=== PATIENT | female | born 1970 | race Caucasian/White ===

== ENCOUNTER 2022-11-18 08:40 | Inpatient (IN) | payer BC, SELFPAY ==
[2022-11-18] VITALS (9 sets, daily range): BP systolic 114–149; BP diastolic 73–86; PULSE 78–109; RESP 16–28; TEMP 36.6–37.6; O2SAT 93–100; BMI 23.4
--- NOTE | 2022-11-18 09:32 | CT_ITS ---
WS: [id number] CT ABDOMEN AND PELVIS NONCONTRAST HISTORY: flank pain, RIGHT. TECHNIQUE: Imaging performed through the abdomen and pelvis. Coronal and sagittal reformats are submi tted. All CT scans at [facility] use at least one of these dose optimization techniques: auto mated exposure control; mA and/or kV adjustment per patient size (includes targeted exams where dose is matched to clinical indication); or iterative reconstruction. DLP: 413.46 mGy.cm COMPARISON: None available. Lower thorax: Lung bases are clear. Visualized heart is normal. No hiatal hernia. Liver: Normal size liver. No mass or bile duct dilatation. Gallbladder: Normal gallbladder. No pericholecystic fluid or cholelithiasis. No gallbladder wall thic kening. Pancreas: Normal size and attenuation. Normal pancreatic duct. No pancreatitis or mass. Spleen: Normal. Adrenal glands: Normal. No mass. Right kidney: RIGHT kidney is enlarged and edematous with mild perinephric stranding. Loss of the nor mal corticomedullary differentiation by noncontrast CT. There is a nonobstructing 4 mm calcification mid pelvis. Moderate hydroureteronephrosis. RIGHT ureter is dilated and tortuous throughout its lengt h. Maximum diameter of the ureter is 10 mm near the pelvic brim. Ureter becomes more normal size dist ally. There is a very tiny, 2 mm, calcification in the distal ureter. The extent of the dilatation is out of proportion to the size of the stone. There is in the additional calcification in the true pel vis which is external to the urological system. Left kidney: Normal size kidney with no mass or hydronephrosis. Aorta: Moderate to severe atherosclerosis abdominal aorta. No aneurysm. Atherosclerosis continues int o the common iliac arteries. No free fluid, intraperitoneal air or significant lymphadenopathy. GI tract: Normal noncontrast imaging of the stomach, small bowel and colon. No obstruction or wall th ickening. Normal appendix. Abdominal wall: Negative. No hernia. Pelvis: Urinary bladder is not distended. Osseous structures: Interbody fusion at L4-5. CT/CT kidney stone [id number] IMPRESSION: 1. Moderate RIGHT hydroureteronephrosis. There is a 2 mm calcification in the very distal ureter. The extent of the hydronephrosis is out of proportion to th e size of the ureter calcification. There is an additional nonobstructing stone in the RIGHT kidney. 2. Mild perinephric stranding RIGHT kidney. There is mild variable density wit hin the renal parenchyma. Focal area of nephritis not excluded. 3. Moderate atherosclerosis aorta. 4. Normal appendix.
--- NOTE | 2022-11-18 09:32 | ED_ITS ---
HPI - Female Genitourinary General: Chief complaint: Urogenital-Female Stated complaint: urogenital Time Seen by Provider: 11/18/22 08:55 Source: patient Mode of arrival: ambulatory History of Present Illness: 52-year-old female who presents to the emergency room with complaints of right flank pain radiating down into her right lower quadrant. Began overnight. Pain is severe she is moving around the room trying to find a comfortable position and she has been very nauseated with some vomiting. She had some dysuria as well. No hematochezia or melena. She has a history of renal stones last stone was 2 to 3 years ago. She has not noticed any hematuria. MD elicited complaint: dysuria and flank pain Onset (ago): hour(s) Location of symptoms: flank (Right) Severity: severe Female Urogenital Radiation: LRQ Quality of pain: sharp Consistency: constant Vaginal discharge: none Vaginal bleeding: none Urinary symptoms: Flank Pain Exacerbating factors: none Relieving factors: none Associated symptoms: Deny abdominal pain, short of breath, fevers/chills, headac he(s), nausea, rash, seizures, syncope, vaginal discharge or weakness Treatment prior to arrival: none Review of Systems Const: Denies: fever(s), chills, fatigue or malaise ENMT: Denies: throat pain, ear or mastoid pain, nasal discharge or nasal congestion Card: Denies: chest pain, palpitations or syncope Resp: Denies: dyspnea, productive cough or non-productive cough GI: Denies: abdominal pain or nausea : Reports: flank pain, dysuria and urinary frequency; Denies: vaginal discharge Musc: Reports: back pain; Denies: neck pain Skin/Breast: Denies: rash or pruritus Neuro: Denies: headache(s) PFS ED PFSH: Medical History 2 para 2 Kidney stones type unknown Migraine Surgical History History of x 2 History of lumbar fusion (2017) L4-L5 Family History Mother Kidney stones Migraine Sister Kidney stones Social History (Reviewed 06/13/23 @ 06:08 by AYDEE Cedeño Smoking and tobacco status: never smoked Alcohol intake: current Alcohol intake frequency: holidays/special occasions only Substance/Drug Use: never Physical Exam Const: GENERAL APPEARANCE: cooperative and comfortable ORIENTATION/CONSCIOUSNESS: Yes awake, Yes oriented to person, Yes oriented to place and Yes oriented to time HENMT: COMMON NORMALS: normocephalic, atraumatic and hearing grossly normal bilaterally HEAD & SCALP: normocephalic and atraumatic Resp: COMMON NORMALS: normal respiratory effort, No retractions, No use of accessory muscles and clear to auscultation bilaterally AUSCULTATION: clear to auscultation bilaterally Cardio: COMMON NORMALS: regular rate, regular rhythm and No murmurs present (Cardio) RATE: regular rate RHYTHM: regular rhythm GI: COMMON NORMALS: Soft to palpation and No hepatosplenomegaly present AUSCULTATION: Yes normoactive bowel sounds PALPATION: Yes Soft to palpation, No Tenderness to palpation present (GI), No Guarding due to palpation present (GI) and Yes No hepatosplenomegaly present : BLADDER/KIDNEY EXAM: Yes CVA tenderness Back/Pelvis: GENERAL BACK: Yes CVA tenderness CVA tenderness: right Extremity: COMMON NORMALS: normal to inspection, capillary refill normal, no clubbing, cyanosis or edema, no calf tenderness and no pedal edema Neuro: SENSORIUM/ORIENTATION: Yes oriented to person, Yes oriented to place and Yes oriented to time Skin: COMMON NORMALS: no rashes or lesions noted GENERAL SKIN EXAM: no rashes or lesions noted Course Vital Signs: Vital signs: Vital Signs Temperature 100.0 F H 11/19/22 04:00 Pulse Rate 114 H 11/19/22 04:00 Respiratory Rate 16 11/19/22 04:00 Blood Pressure 128/79 11/19/22 04:00 Pulse Oximetry 90 11/19/22 04:00 Oxygen Delivery Me thod Room Air 11/19/22 04:00 MDM - Female Medical Decision Making CT shows 2 mm stone. 40-50 white blood cells per high-power field pain very difficult to control. Patient has obstructive pyelonephritis will start on ceftriaxone admit consult urology have discussed Dr. Tate we will see as an inpatient. Concerning that the patient has a relatively small stone but severe difficult to control symptoms. Cultures of been done. Medical Records I reviewed the patient's medical records. Lab Data I reviewed the patient's lab results. 11/18/22 09:29 11/18/22 09:29 Radiology Impressions Abdomen/Pelvis CT 11/18/22 09:32 IMPRESSION: 1. Moderate RIGHT hydroureteronephrosis. There is a 2 mm calcification in the very distal ureter. The extent of the hydronephrosis is out of proportion to the size of the ureter calcification. There is an additional nonobstructing stone in the RIGHT kidney. 2. Mild perinephric stranding RIGHT kidney. There is mild variable density within the renal parenchyma. Focal area of nephritis not excluded. 3. Moderate atherosclerosis aorta. 4. Normal appendix. Laboratory Results WBC 10.3 10^3/uL (4.0-10.0) H 11/18/22 09: RBC 4.88 10^6/uL (4.1-5.3) 11/18/22 09: Hgb 14.9 g/dL (11.5-15.3) 11/18/22 09: Hct 45.2 % (37.0-47.0) 11/18/22 09: MCV 92.6 fl (81-99) 11/18/22 09: MCH 30.5 pg (28.0-34.0) 11/18/22 09: MCHC 33.0 g/dL (30.0-36.0) 11/18/22 09: RDW 12.6 % (12.1-15.1) 11/18/22 09: Plt Count 199 10^3/cmm (130-400) 11/18/22: MPV 10.1 fL (7.4-10.4) 11/18/22 09: Neut % (Auto) 75.6 % 11/18/22 09: Lymph % (Auto) 16.9 % 11/18/22 09: [place] % (Auto) 5.6 % 11/18/22 09: Eos % (Auto) 0.7 % 11/18/22 09:29 Baso % (Auto) 0.7 % 11/18/22 09:29 Neut # (Auto) 7.82 10^3/uL (1.8-7.7) H 11/18/22 09: Lymph # (Auto) 1.8 10^3/uL (0.8-4.8) 11/18/22 09: [place] # (Auto) 0.6 10^3/uL (0.2-0.9) 11/18/22 09: Eos # (Auto) 0.1 10^3/uL (0.0-0.8) 11/18/22 09: Baso # (Auto) 0.1 10^3/uL (0.0-0.1) 11/18/22 09: Nucleated RBC % (auto) 0 % 11/18/22: Nucleated RBCs # 0.0 /100WBC 11/18/22: Sodium 137 mmol/L (136-145) 11/18/22: Potassium 4.1 mmol/L (3.5-5.1) 11/18/22: Chloride 100 mmol/L (98-107) 11/18/22: Carbon Dioxide 25 mmol/L (22-29) 11/18/22: Anion Gap 16.1 (5-19) 11/18/22: BUN 22 mg/dL (6-20) H 11/18/22: Creatinine 0.8 mg/dL (0.5-0.9) 11/18/22: GFR Calculation 75.6 mL/min (90-130) L 11/18/22: Glucose 114 mg/dL (65-115) 11/18/22 Calculated Osmolality 288 mOsm/kg (285-295) 11/18/22: Lactic Acid 1.6 mmol/L (0.5-2.2) 11/18/22: Calcium 9.3 mg/dL (8.5-10.5) 11/18/22: Urine Color Yellow (Yellow) 11/18/22: Urine Appearance Sl hazy (CLEAR) A 11/18/22: Urine pH 6 (5-7) 11/18/22: Ur Specific [place] 1.020 (1.005-1.030) 11/18/22: Urine Protein Trace (Negative) 11/18/22 Urine Glucose (UA) Norm (Normal) 06/12/23 09:29 Urine Ketones Negative (Negative) 11/18/22 09:29 Urine Blood 3+ (Negative) H 11/18/22 09:29 Urine Nitrate Negative (Negative) 11/18/22 09:29 Urine Bilirubin Neg (Negative) 11/18/22 09:29 Urine Urobilinogen Norm mg/dL (Negative) 11/18/22 09:29 Ur Leukocyte Esterase Trace (Negative) H 11/18/22 09:29 Urine RBC 0-4 /hpf (0-2) H 11/18/22 09:29 Urine WBC 40-55 /hpf (0-5) H 11/18/22 09:29 Ur Squamous Epith Cells 0-4 /hpf (0-5) H 11/18/22 09:29 Amorphous Sediment Not Reportable 11/18/22 09:29 Urine Bacteria Trace /hpf (NONE) 11/18/22 09:29 Urine Mucus Trace /hpf 11/18/22 09:29 Discharge Plan Discharge Patient Disposition: Admitted As Inpatient Admit Provider: Susan Koch Clinical Impression: Pyelonephritis, Kidney stones Condition: Stable Coding Level of Care Code ED [employer]able [employer] for [facility]
[2022-11-18 09:41] LABS: Basophils # 0.1 10^3/uL (0.0-0.1); Basophils % 0.7 %; Eosinophils # 0.1 10^3/uL (0.0-0.8); Eosinophils % 0.7 %; Hematocrit 45.2 % (37.0-47.0); Hemoglobin 14.9 g/dL (11.5-15.3); Lymphocytes # 1.8 10^3/uL (0.8-4.8); Lymphocytes % 16.9 %; Mean Corpuscular Hemoglobin 30.5 pg (28.0-34.0); Mean Corpuscular Volume 92.6 fl (81-99); Mean Platelet Volume 10.1 fL (7.4-10.4); Monocytes # 0.6 10^3/uL (0.2-0.9); Monocytes % 5.6 %; Neutrophils # 7.82 10^3/uL (1.8-7.7); Neutrophils % 75.6 %; Nucleated Red Blood Cells % 0 %; Platelet Count 199 10^3/cmm (130-400); Red Blood Count 4.88 10^6/uL (4.1-5.3); Red Cell Distribution Width 12.6 % (12.1-15.1); White Blood Count 10.3 10^3/uL (4.0-10.0)
[2022-11-18] MEDS: ondansetron 2 mg/ML SDV 2 mL 4 MG IVP (10:00)
[2022-11-18] MEDS: morphine 4 mg/mL SDV 1 mL IVP ×2 (10:00→10:50)
[2022-11-18] MEDS: sodium chloride 0.9% 1,000 ML 999 ML IV (10:01)
[2022-11-18 10:15] LABS: Add Urine Microscopic? YES; Bilirubin Urine Neg (Negative); Blood Urine 3+ (Negative); Glucose Urine UA Norm (Normal); Ketones Urine Negative (Negative); Leukocyte Esterase Urine Trace (Negative); Nitrate Urine Negative (Negative); Protein Urine Trace (Negative); Urine Appearance SL Hazy (CLEAR); Urine Color Yellow (Yellow); Urobilinogen Urine Norm (Negative); pH Urine 6 (5-7)
[2022-11-18 10:16] LABS: Add Urine Culture? Yes; Bacteria Urine TRACE /hpf; Mucus Urine TRACE /hpf; RBC Urine 0-4 /hpf (0-2); Squamous Epithelial Cell Urine 0-4 /hpf (0-5); WBC Urine 40-55 /hpf (0-5)
[2022-11-18] MEDS: cefTRIAXone 1,000 MG in sodium chloride 0.9% (plus) 50 ML 100 MG IV (10:50)
[2022-11-18] MEDS: HYDROmorphone 1 mg/mL INJ 1 mL IVP (11:29)
[2022-11-18] MEDS: HYDROmorphone 1 mg/mL INJ 1 mL 0.5 MG IVP (11:55)
[2022-11-18 12:12] LABS: Anion Gap 16.1 (5-19); Blood Urea Nitrogen 22 mg/dL (6-20); Calcium 9.3 mg/dL (8.5-10.5); Carbon Dioxide 25 mmol/L (22-29); Chloride 100 mmol/L (98-107); Glomerular Filtration Rate 75.6 mL/min (90-130); Glucose 114 mg/dL (65-115); Lactic Sepsis W/Reflex 1.6 mmol/L (0.5-2.2); Osmolality Calculated 288 mOsm/kg (285-295); Potassium 4.1 mmol/L (3.5-5.1); Sodium 137 mmol/L (136-145)
--- NOTE | 2022-11-18 12:15 | P.HP_ITS ---
Providers/Chief Complaint Admitting Physician: Susan Koch MD Primary Care Provider: Dr Lance Bell at [place] [facility] Chief Complaint: urogenital History of Present Illness Kristina Osorio is a 52 year old female who presented to the ED with chief complaint of back pain and dysuria. Symptoms began this morning. Prior to today, denies any prodromal symptoms. She noticed right sided back pain that was initially mild upon awakening from sleep, thought she had maybe slept wrong. She proceeded to get ready for work and on the way into work her back pain became even more acutely severe up to an 11 out of 10 by her ranking. She has a history of kidney stones in the past and knew what her symptoms probably were. The pain radiated into the right lower quadrant suprapubic region in the front. After the onset of the pain she also noted dysuria. Has not noted any blood in her urine. She has had nausea and a couple of episodes of vomiting. She presented to the emergency room. White count is just outside of normal range with a little bit of a left shift. Urinalysis shows 40-55 white blood cells with trace leukocyte esterase. 3+ blood is noted with only 0-[address] imaging without contrast shows moderate right hydroureteronephrosis. A 2 mm calcification is noted in the very distal ureter. The extent of the hydronephrosis is out of proportion to the size of the ureter calcification. Additional nonobstructing stone is also noted in the right kidney. Mild perinephric stranding is seen within the right kidney. A focal area of nephri tis is not excluded. She received multiple doses of pain medication in the emergency room including a total of 12 mg of morphine and 1-1/2 mg of Dilaudid. She required several doses of antiemetics and has also received some IV fluids. She was started on Rocephin. Dr. Downey with urology was contacted. He will see her in consultation. She is being admitted to hospitalist service. While she has had previous kidney stones. She has previously passed them. Has never had a stone analyzed. Has never required invasive intervention because of kidney stones. Review of Systems Const: Reports: malaise; Denies: fever(s) Card: Denies: chest pain Resp: Denies: dyspnea GI: Reports: abdominal pain, nausea and vomiting; Denies: diarrhea or constipation : Reports: flank pain, difficulty voiding, dysuria and urinary frequency; Denies: hematuria Musc: Reports: back pain Neuro: Reports: headache(s) (Has migraines at least once a week); Denies: numbness in extremities [place]/Lymph: Denies: easy bruising or easy bleeding Medications/Allergies Home Medications Medication Instructions Recorded Confirmed Last Taken Type eeqilxripc-[id number]-[id number] 1 cap PO Q6H PRN Migraine Headache 11/18/22 11/18/22 Unknown History 50 mg-300 mg-40 mg capsule ondansetron 4 mg disintegrating 4 mg PO Q8H PRN Nausea And Vomiting 11/18/22 11/18/22 Unknown History tablet sumatriptan succinate 100 mg tablet 100 mg PO DIRECTED PRN Migraine 11/18/22 11/18/22 Unknown History Headache Allergies Allergy/AdvReac Type Severity Reaction Status Date / Time No Known Allergies Allergy Verified 11/18/22 10:31 PFSH Acute PFSH: Medical History (Updated 11/18/22 @ 13:01 by Susan Koch MD) 2 para 2 Kidney stones type unknown Migraine Surgical History (Updated 11/18/22 @ 12:30 by Susan Koch MD) History of x 2 History of lumbar fusion (2017) L4-L5 Family History (Updated 11/18/22 @ 12:31 by Ssuan Koch MD) Mother Kidney stones Migraine Sister Kidney stones Social History (Updated 11/18/22 @ 12:32 by Susan Koch MD) Smoking and tobacco status: never smoked Alcohol intake: current Alcohol intake frequency: holidays/special occasions only Substance/Drug Use: never Vitals/I&O/Wt Last Vital Signs Pulse 84 11/18/22 12:11 Resp 16 11/18/22 12:11 BP 129/82 11/18/22 12:11 Pulse Ox 94 11/18/22 12:11 O2 Del Method Room Air 11/18/22 08:55 11/17/22 11/18/22 11/18/22 22:59 06:59 14:59 Intake Total 1050 / 1050 Balance 1050 / 1050 Weight last 48 hrs Weight 54.431 kg Physical Exam Narrative: Patient is awake and alert, sitting up on the side of the bed, looks to be in obvious discomfort at times but able to provide history. Normocephalic. Extraocular movements are intact. Oropharynx with slightly dry mucous membranes. Lungs are clear to auscultation bilaterally. Cardiovascular exam reveals a regular rate and rhythm. Abdomen is soft, with right lower quadrant tenderness to palpation extending into the right suprapubic area. No rebound but some voluntary guarding. Positive bowel sounds. Mild flank tenderness on the right side. No other areas of back tenderness at the present time. No pitting edema. Speech clear, face symmetric, moves all extremities. Data 11/18/22 09:11/18/22: Other Labs: Radiology Impressions Abdomen/Pelvis CT 11/18/22 09:32 IMPRESSION: 1. Moderate RIGHT hydroureteronephrosis. There is a 2 mm calcification in the very distal ureter. The extent of the hydronephrosis is out of proportion to the size of the ureter calcification. There is an additional nonobstructing stone in the RIGHT kidney. 2. Mild perinephric stranding RIGHT kidney. There is mild variable density within the renal parenchyma. Focal area of nephritis not excluded. 3. Moderate atherosclerosis aorta. 4. Normal appendix. Laboratory Results WBC 10.3 10^3/uL (4.0-10.0) H 11/18/22: RBC 4.88 10^6/uL (4.1-5.3) 11/18/22: Hgb 14.9 g/dL (11.5-15.3) 11/18/22: Hct 45.2 % (37.0-47.0) 11/18/22: MCV 92.6 fl (81-99) 11/18/22: MCH 30.5 pg (28.0-34.0) 11/18/22: MCHC 33.0 g/dL (30.0-36.0) 11/18/22: RDW 12.6 % (12.1-15.1) 11/18/22 Plt Count 199 10^3/cmm (130-400) 11/18/22 MPV 10.1 fL (7.4-10.4) 11/18/22 Neut % (Auto) 75.6 % 11/18/22: Lymph % (Auto) 16.9 % 11/18/22 09: [place] % (Auto) 5.6 % 11/18/22 09: Eos % (Auto) 0.7 % 11/18/22 09: Baso % (Auto) 0.7 % 11/18/22 09: Neut # (Auto) 7.82 10^3/uL (1.8-7.7) H 11/18/22 09: Lymph # (Auto) 1.8 10^3/uL (0.8-4.8) 11/18/22 09: [place] # (Auto) 0.6 10^3/uL (0.2-0.9) 11/18/22 09: Eos # (Auto) 0.1 10^3/uL (0.0-0.8) 11/18/22 09: Baso # (Auto) 0.1 10^3/uL (0.0-0.1) 11/18/22 09: Nucleated RBC % (auto) 0 % 11/18/22 09: Nucleated RBCs # 0.0 /100WBC 11/18/22 09: Sodium 137 mmol/L (136-145) 11/18/22 09: Potassium 4.1 mmol/L (3.5-5.1) 11/18/22 09: Chloride 100 mmol/L (98-107) 11/18/22 09: Carbon Dioxide 25 mmol/L (22-29) 11/18/22 09: Anion Gap 16.1 (5-19) 11/18/22 09: BUN 22 mg/dL (6-20) H 11/18/22 09: Creatinine 0.8 mg/dL (0.5-0.9) 11/18/22 09: GFR Calculation 75.6 mL/min (90-130) L 11/18/22 09: Glucose 114 mg/dL (65-115) 11/18/22: Calculated Osmolality 288 mOsm/kg (285-295) 11/18/22 09: Lactic Acid 1.6 mmol/L (0.5-2.2) 11/18/22 09: Calcium 9.3 mg/dL (8.5-10.5) 11/18/22 09:29 Urine Color Yellow (Yellow) 11/18/22 09:29 Urine Appearance Sl hazy (CLEAR) A 11/18/22 09:29 Urine pH 6 (5-7) 11/18/22 09:29 Ur Specific [place] 1.020 (1.005-1.030) 11/18/22 09:29 Urine Protein Trace (Negative) 11/18/22 09:29 Urine Glucose (UA) Norm (Normal) 11/18/22 09: Urine Ketones Negative (Negative) 11/18/22 09: Urine Blood 3+ (Negative) H 11/18/22 09:29 Urine Nitrate Negative (Negative) 11/18/22 09: Urine Bilirubin Neg (Negative) 11/18/22 09: Urine Urobilinogen Norm mg/dL (Negative) 11/18/22 09: Ur Leukocyte Esterase Trace (Negative) H 11/18/22 09:29 Urine RBC 0-4 /hpf (0-2) H 11/18/22 09: Urine WBC 40-55 /hpf (0-5) H 11/18/22 09: Ur Squamous Epith Cells 0-4 /hpf (0-5) H 11/18/22 09: Amorphous Sediment Not Reportable 11/18/22 09: Urine Bacteria Trace /hpf (NONE) 11/18/22 09: Urine Mucus Trace /hpf 11/18/22 09:29 A&P Assessment and plan (1) Kidney stones: Acute distal ureter kidney stone, type unknown, present on admission with associated hydroureteronephrosis out of proportion to the size of stone along with findings of suspected pyelonephritis present on admission both from imaging findings and symptoms. IV fluids Continue Rocephin Urology consultation Strain urine for stones and send for analysis if capture any Follow-up pending urine culture (2) Pyelonephritis: Present on admission, organism unknown at this time See above (3) Hydroureteronephrosis: Present on admission, currently with normal renal function. Degree is out of proportion to size of stone visualized. Not known to have had hydroureteronephrosis previously from information she is able to provide. We have no prior studies for comparison. See above (4) Migraine: History of chronic migraine, not acute presently. Has as needed sumatriptan, butalbital-acetaminophen?caffeine, Zofran ODT which she takes probably once a week for migraines. Monitor need for treatment Plan Inpatient admission VTE prophylaxis: SCDs currently as may require invasive intervention GI Prophylaxis: PPI Telemetry: Not currently indicated [place]: Not currently indicated Line(s): Peripheral IV Disposition plan: Home with oral antibiotics anticipated, may require outpatient follow-up with urology (need to keep in mind that Dr. Downey is retiring at the end of this month) Code Status: Full code Attestations Medical Necessity Statement*: Inpatient admission secondary to findings of perinephric stranding and abnormal urinalysis suggesting acute pyelonephritis present on admission and degree of hydroureteronephrosis being out of proportion to size of kidney stone. Currently requiring frequent IV pain medication, IV antibiotics, IV fluids and urological consultation for possible intervention. and Moderate Time for a total of 60 minutes, includes examining/interviewing patient, placing orders and documenting encounter Diagnoses Kidney stones N20.0 Pyelonephritis N12 Hydroureteronephrosis N13.30 Migraine G43.909
[2022-11-18] MEDS: sodium chloride 0.9% 1,000 ML 100 ML IV (13:09)
[2022-11-18] MEDS: sodium chlor 0.9% + KCl 20 mEq 20 MEQ/1,000 ML BAG 150 MEQ IV ×2 (14:20→21:11)
--- NOTE | 2022-11-18 15:38 | PM.CONSULT ---
Providers/Reason For Consult Consulting Physician/Specialty*: Urology/[place] Reason for Consult*: RIGHT distal ureteral stone with obstruction and pain. UTI Requesting Physician: Dr. Koch Attending Physician: Susan Koch MD History of Present Illness History of Present Illness Kristina Osorio is a 52 year old female with a history of urolithiasis who presented with <12 hours of abrupt onset of severe right renal colicky symptoms to the emergency department today. No fever or chills. Pain radiated to the right lower quadrant. Complained of severe nausea and vomiting as well. Work-up: Was found to have on CT scan right hydroureteronephrosis down to the distal ureter with evidence of a very small stone in that most distal aspect. Urine showed pyuria. No evidence of sepsis. Culture is pending. Blood cell count: High normal. Pain was very difficult to control and she was admitted for symptomatic control and IV antibiotics and further evaluation of the obstruction. We reviewed the CT scan. She definitely has severe hydronephrosis on the right side. It comes down to the area close to the stone. This could represent a stricture or just a very high-grade acute obstruction but the dilation degree is significant. Her reminded her that she had some pain similar to this that was short-lived about 6 months ago. Could be that she has had a chronic obstruction since then with acute exacerbation for this episode. Recommended that we continue symptomatic control, IV antibiotics, and obtain a KUB early in the morning. I do not think there is much risk at this point of severe infectious concerns but the degree of dilation and the severity of her symptoms and the inability to have passed a very very small stone increases the chance that she might need intervention sooner than later. We discussed the options for that intervention specifically endoscopy. We will revisit that issue tomorrow morning. She has passed all of her previous stones and has had no requirement for intervention. Review of Systems Const: Denies: fever(s) or chills Eyes: Denies: change in vision ENMT: Denies: hoarseness Card: Denies: chest pain or palpitations Resp: Denies: dyspnea or wheezing GI: Reports: abdominal pain, nausea and vomiting; Denies: change in bowel habits : Reports: flank pain and dysuria (Transient) Musc: Denies: joint warmth Skin/Breast: Denies: rash Neuro: Denies: confusion, behavioral changes or Slurred speech present Psych: Reports: anxiety (Secondary to the severity of her pain only); Denies: depression Endo: Denies: flushing [place]/Lymph: Denies: easy bruising or easy bleeding All/Imm: Denies: urticaria Medications/Allergies Home Medications Medication Instructions Recorded Confirmed Last Taken Type iamngfnkxm-bicomvgqflrzi-ahifpuyh 1 cap PO Q6H PRN Migraine Headache 11/18/22 11/18/22 Unknown History 50 mg-300 mg-40 mg capsule ondansetron 4 mg disintegrating 4 mg PO Q8H PRN Nausea And Vomiting 11/18/22 11/18/22 Unknown History tablet sumatriptan succinate 100 mg tablet 100 mg PO DIRECTED PRN Migraine 11/18/22 11/18/22 Unknown History Headache Allergies Allergy/AdvReac Type Severity Reaction Status Date / Time No Known Allergies Allergy Verified 11/18/22 10:31 Current Medications Generic Name Dose Route Start Last Admin Trade Name Freq PRN Reason Stop Dose Admin Potassium Chloride/Sodium Chloride 20 meq in 1,000 mls @ 150 mls/hr 11/18/22 13:15 11/18/22 14:20 Sodium Chlor 0.9% + Kcl 20 Meq IV 150 mls/hr .Q6H40M CYDNEY Administration PFSH Acute PFSH: Medical History 2 para 2 Kidney stones type unknown Migraine Surgical History History of x 2 History of lumbar fusion (2017) L4-L5 Family History Mother Kidney stones Migraine Sister Kidney stones Social History Smoking and tobacco status: never smoked Alcohol intake: current Alcohol intake frequency: holidays/special occasions only Substance/Drug Use: never Vitals/I&O/Wt Last Vital Signs Temp 98 F 11/18/22 13:05 Pulse 92 11/18/22 13:05 Resp 17 11/18/22 13:05 BP 136/84 11/18/22 13:05 Pulse Ox 95 11/18/22 13:05 O2 Del Method Room Air 11/18/22 13:05 11/18/22 11/18/22 11/18/22 06:59 14:59 22:59 Intake Total 1091.667 / 1091.667 Balance 1091.667 / 1091.667 Weight last 48 hrs Weight 120 lb Physical Exam Const: COMMON NORMALS: alert and well nourished GENERAL APPEARANCE: well kempt and well developed ORIENTATION/CONSCIOUSNESS: not confused HENMT: COMMON NORMALS: normocephalic HEAD & SCALP: normal to inspection and normocephalic Eye: COMMON NORMALS: no scleral icterus Neck/C-Spine: OTHER: Good range of motion Lymph: OTHER: No lymphedema Chest: OTHER: Normal chest movements Resp: COMMON NORMALS: normal respiratory effort EFFORT & INSPECTION: No labored and No Actively coughing GI: OTHER: Right upper quadrant tenderness : OTHER: Bladder nondistended Back/Pelvis: OTHER: Right CVA tenderness Extremity: NARRATIVE EXTREMITY EXAM: Good range of motion. Neuro: COMMON NORMALS: no focal motor deficits SENSORIUM/ORIENTATION: Yes alert Psych: COMMON NORMALS: mental status grossly normal APPEARANCE: Yes grossly normal and Yes well kempt ATTITUDE: Yes calm and Yes engaged Skin: COMMON NORMALS: no jaundice Data 11/19/22 06:01 11/19/22 06:01 A&P Assessment and plan (1) Hydroureteronephrosis: (2) Right distal ureteral calculus: (3) Acute cystitis without hematuria: Plan 1. IV antibiotics, close observation of hemodynamic status looking for evidence of infectious progression. 2. Strain voids. 3. Consider intervention if no progress. If she does really well both from an infection perspective and pain control could consider further outpatient management. I do not think there is any evidence of sepsis to be concerned about at this point 4. Long detailed discussion on the specifics of her circumstance with her and . Consult Attestations Medical Necessity Statement: Refractory pain from small tightly obstructing right distal ureteral stone with UTI no evidence of sepsis Coding Level of Care Code Acute Code for [facility] [place] Fwd Diagnoses Hydroureteronephrosis N13.30 Right distal ureteral calculus N20.1 Acute cystitis without hematuria N30.00
[2022-11-18] MEDS: docusate sodium 100 mg Capsule PO (17:07)
--- NOTE | 2022-11-18 17:48 | PC.NURSE ---
Patient arrived to unit in a wc, walked to bed and OOB to bathroom, strainer and hat in bathroom to strain urine. Minimal c/o pain, resting quietly, room clean and clutter free with call light and remote by bed. Spouse at bedside, no needs at this time.
[2022-11-18] MEDS: sennosides 8.6 mg Tablet 17.2 MG PO (21:11)
[2022-11-19] VITALS (20 sets, daily range): BP systolic 98–145; BP diastolic 66–86; PULSE 75–114; RESP 16–20; TEMP 36.4–37.9; O2SAT 88–97
[2022-11-19] MEDS: sodium chlor 0.9% + KCl 20 mEq 20 MEQ/1,000 ML BAG 150 MEQ IV ×3 (03:59→21:24)
[2022-11-19 06:43] LABS: Basophils # 0.1 10^3/uL (0.0-0.1); Basophils % 0.5 %; Eosinophils % 0.3 %; Hematocrit 35.9 % (37.0-47.0); Hemoglobin 11.6 g/dL (11.5-15.3); Lymphocytes # 0.6 10^3/uL (0.8-4.8); Lymphocytes % 5.9 %; Mean Corpuscular HGB Conc 32.3 g/dL (30.0-36.0); Mean Corpuscular Volume 92.8 fl (81-99); Mean Platelet Volume 10.4 fL (7.4-10.4); Monocytes # 0.6 10^3/uL (0.2-0.9); Monocytes % 5.7 %; Neutrophils # 9.28 10^3/uL (1.8-7.7); Neutrophils % 86.9 %; Nucleated Red Blood Cells % 0 %; Platelet Count 131 10^3/cmm (130-400); Red Blood Count 3.87 10^6/uL (4.1-5.3); Red Cell Distribution Width 13.1 % (12.1-15.1); White Blood Count 10.7 10^3/uL (4.0-10.0)
[2022-11-19 07:10] LABS: Anion Gap 13.2 (5-19); Blood Urea Nitrogen 10 mg/dL (6-20); Calcium 8.5 mg/dL (8.5-10.5); Carbon Dioxide 23 mmol/L (22-29); Chloride 104 mmol/L (98-107); Glomerular Filtration Rate 88.2 mL/min (90-130); Glucose 99 mg/dL (65-115); Magnesium 1.8 mg/dL (1.7-2.3); Osmolality Calculated 281 mOsm/kg (285-295); Phosphorus 2.5 mg/dL (2.5-4.5); Potassium 4.2 mmol/L (3.5-5.1); Sodium 136 mmol/L (136-145)
--- NOTE | 2022-11-19 07:59 | XR_ITS ---
WS: [id number] XR KUB portable [id number] REASON FOR EXAM: pyelonephritis FINDINGS: No free air or retroperitoneal air. Unremarkable bowel gas pattern. No urinary tract calculi identified. No organomegaly or mass. Postoperative lumbar spine. XR/XR KUB portable [id number] IMPRESSION: No significant abnormality.
[2022-11-19] MEDS: pantoprazole DR 40 mg Tablet PO (10:04)
[2022-11-19] MEDS: cefTRIAXone 1,000 MG in sodium chloride 0.9% (plus) 50 ML 100 MG IV (10:04)
[2022-11-19] MEDS: docusate sodium 100 mg Capsule PO ×2 (10:04→17:15)
[2022-11-19] MEDS: acetaminophen 325 mg Tablet 650 MG PO (10:07)
--- NOTE | 2022-11-19 10:28 | PC.CHAP ---
Pastoral Care Encounter/Spiritual Assessment Type of Contact [] Declined occupational health and safety adviser visit [] Patient/Family/Request visit [] Outpatient visit [] Follow-up visit [] Physician referral [] Code/Alert [x] Routine visit [] Staff referral [] Actively dying [] Patient sleeping [] Family support [] [] Out of room [] Palliative care [] [] Receiving care in room [] Pre-surgical visit [] Trauma [] Long length of stay [] ICU visit [] Other: Relational/Emotional Strength [x] Patient feels connected with others/family/visitors/staff [] Distress [] Loneliness/isolation [] Abandonment Spirituality of Patient [x] Person of Adelina [] Attends Hoahaoism of their Adelina [x] Believes in Prayer [] Reads Bible or Protestant materials [] There are 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 [x] Prayer [x] Active listening [] Non-anxious presence [x] Spiritual/emotional support [] Crisis/trauma care [] Spiritual counseling [] Bereavement support [] Provided bereavement packet [] Provided Bible/devotional materials [] Provided toy/stuffed animal, coloring book to patient or family member [] Provided Communion [] Anointing/[place] [] Salvation [x] Completed spiritual assessment [] Other: Impact on Illness or Injury [] Angry [] Fearful [] Anxious [] Often cries [] Exhaustion [] Unable to work [] Unable to attend zoroastrianism [] Unable to walk/stand [] Unable to read [] Unable to drive [] Unable to eat/drink [] Unable to sleep [] Unable to be with family [] Patient intubated [] Other: Summary Time spent with patient 5 min
--- NOTE | 2022-11-19 12:25 | P.PN_ITS ---
Subjective Subjective: Urology follow-up: Hospital day #2, right distal ureteral stone, high-grade obstruction and UTI No real improvement. She did demonstrate low-grade temperature last night. White count is about the same. Vital signs of been stable but she does have more tachycardia and some tachypnea. Pain is not nearly as severe as it was in the emergency department but still significant. She reports just not feeling well. Currently I do not think there is much reason to consider her is a good candidate for outpatient management. We did discuss further conservative management in the hospital with hopes of spontaneous passage versus intervention. Argument is strongest for intervention with a history of significant what appears to be longstanding dilation, absence of passage of a stone that would historically expect to be passed quickly, and persistence of symptoms worrisome for infection in the absence of sepsis. With that in mind she chose to proceed with intervention. I reviewed the procedure: Cystoscopy, RIGHT: Retrograde, ureteroscopy, laser, stent in detail. Benefits risks thoroughly reviewed. Alternatives discussed. She has very appropriate questions and seemed content with my answers. I outlined for her or unusual circumstances such as inability to safely pass the scope to the stone and and much less frequently inability to access the upper tract beyond the stone at all even with guidewire or stent. In the former circumstances stent placement would accomplish passive dilation and drainage of the upper urinary tract. If no access could be obtained from a retrograde approach then we would pursue transfer to institution with interventional radiology available for percutaneous antegrade drainage possible antegrade stent placement. I think this is slightly increased in her because of what appears to be longstanding blockage which might imply a more distinct narrowing of the ureter or severe inflammatory changes more difficult to manipulate. Informed consent was obtained. Vitals/I&O/Wt Last Vital Signs Temp 98.8 F 11/19/22 12:00 Pulse 93 11/19/22 12:00 Resp 18 11/19/22 12:00 BP 109/68 11/19/22 12:00 Pulse Ox 95 11/19/22 12:00 O2 Del Method Room Air 11/19/22 07:25 11/18/22 11/19/22 11/19/22 22:59 06:59 14:59 Intake Total 1000 / 2091.667 1000 / 3091.667 1050 / 1050 Output Total 200 / 200 300 / 500 Balance 800 / 1891.667 700 / 2591.667 1050 / 1050 Weight last 48 hrs Weight 120 lb Physical Exam Narrative: Alert and oriented No status is uncompromised Appears to feel unwell. Normal mentation Normal range of motion of neck Unlabored respiration without wheezes Regular rhythm tachycardia Extremities with good range of motion Neurologically intact. Genitalia. Normal urethra. No vaginal discharge or prolapse. No jaundice rashes or lesions Data 11/19/22 06:01 11/19/22 06:01 Micro: Microbiology 11/18/22 09:29 Urine Culture - Final Urine,Clean Catch A&P Assessment and plan (1) Hydroureteronephrosis: (2) Right distal ureteral calculus: (3) Acute cystitis without hematuria: Plan We will plan on intervention today. See HPI. Attestations Medical Necessity Statement*: Failed to clinically improve or passed the stone. Surgical intervention necessary. Coding Level of Care Code Acute Code for [facility] Fwd Diagnoses Hydroureteronephrosis N13.30 Right distal ureteral calculus N20.1 Acute cystitis without hematuria N30.00
--- NOTE | 2022-11-19 12:53 | SC_ITS ---
WS: [id number] C-arm [place] for Urology REASON FOR EXAM: intra-op FINDINGS: Retrograde right ureteral pyelogram with balloon dilatation of the distal most right ureter. Mildly dilated intrarenal collecting system. No calculi identified. Right ureteral stent placement. SC/C-arm [place] for Urology IMPRESSION: Right retrograde ureteropyelogram with right ureteral stent placement.
[2022-11-19] MEDS: sodium chloride 0.9% 1,000 ML 30 ML IV (13:10)
--- NOTE | 2022-11-19 13:38 | P.ANESASSM_ITS ---
Pre-Anesthetic Assessment Height/Weight: Height 1.52 m Weight 54.431 kg Temp Pulse Resp BP Pulse Ox O2 Del Method 97.6 F 88 18 136/81 95 Room Air 11/19/22 12:55 11/19/22 12:55 11/19/22 12:55 11/19/22 12:55 11/19/22 12:55 11/19/22 12:55 Operation Date: 11/19/22 13:30 Proposed Procedures p Cystoscopy(Not Applicable) - Kwame Downey MD s Retrograde Pyelogram(Right) - Kwame Downey MD s Ureteroscopy(Right) - Kwame Downey MD s Laser Lithotripsy(Right) - Kwame Downey MD s Ureteral Stent Placement(Right) - Kwame Downey MD Familial anesthetic complications: none Was Beta Niles taken within 24 hours: N/A Was Clonidine taken within 24 hours: N/A Social No alcohol and No tobacco Exam alert, oriented x 3, clear to auscultation bilaterally and regular rate & rhythm Airway Submandibular: within normal limits Cervical ROM: within normal limits Mallampati: Class II Dentition: false kidney stones, cystis Musc/skel Lower Back Pain Anesthetic Plan ASA status: 2 Anesthesia: General Medications/Allergies Home Medications Medication Instructions Recorded Confirmed Last Taken Type zlqszjqnav-xfwnaayhninro-ozfwlcjt 1 cap PO Q6H PRN Migraine Headache 11/18/22 11/18/22 Unknown History 50 mg-300 mg-40 mg capsule ondansetron 4 mg disintegrating 4 mg PO Q8H PRN Nausea And Vomiting 11/18/22 11/18/22 Unknown History tablet sumatriptan succinate 100 mg tablet 100 mg PO DIRECTED PRN Migraine 11/18/22 11/18/22 Unknown History Headache Allergies Allergy/AdvReac Type Severity Reaction Status Date / Time No Known Allergies Allergy Verified 11/18/22 10:31 Current Medications Generic Name Dose Route Start Last Admin Trade Name Valentinoq PRN Reason Stop Dose Admin Acetaminophen 650 mg 11/18/22 13:05 11/19/22 10:07 Acetaminophen 325 Mg Tablet PO 650 mg Q6H PRN Administration Mild/Mod Pain Or Temp >/= 101 Docusate Sodium 100 mg 11/18/22 18:00 11/19/22 10:04 Docusate Sodium 100 Mg Capsule PO 100 mg BID CYDNEY Administration Potassium Chloride/Sodium Chloride 20 meq in 1,000 mls @ 150 mls/hr 11/18/22 13:15 11/19/22 11:13 Sodium Chlor 0.9% + Kcl 20 Meq IV 150 mls/hr .Q6H40M CYDNEY Administration Ceftriaxone Sodium 1,000 mg/ 50 mls @ 100 mls/hr 11/19/22 10:00 11/19/22 10:57 Sodium Chloride IV Infused Q24H CYDNEY Infusion Protocol Sodium Chloride 1,000 mls @ 30 mls/hr 11/19/22 13:00 11/19/22 13:10 Sodium Chloride 0.9% IV 11/20/22 12:59 30 mls/hr .Q24H CYDNEY Administration Pantoprazole Sodium 40 mg 11/19/22 09:00 11/19/22 10:[address] 40 Mg Tablet PO 40 mg DAILY CYDNEY Administration Senna 17.2 mg 11/18/22 21:00 11/18/22 21:11 Sennosides 8.6 Mg Tablet PO 17.2 mg BEDTIME CYDNEY Administration PFS Anesthesia Medical History 2 para 2 Kidney stones type unknown Migraine Surgical History History of x 2 History of lumbar fusion (2016) L4-L5 Family History Mother Kidney stones Migraine Sister Kidney stones Social History Smoking and tobacco status: never smoked Alcohol intake: current Alcohol intake frequency: holidays/special occasions only Substance/Drug Use: never Data Anesthesia 11/19/22 06:01 11/19/22 06:01 Short CBC 11/18/22 11/19/22 Range/Units 09:29 06:01 WBC 10.3 H 10.7 H (4.0-10.0) 10^3/uL Hgb 14.9 11.6 (11.5-15.3) g/dL Hct 45.2 35.9 L (37.0-47.0) % MCV 92.6 92.8 (81-99) fl Plt Count 199 131 D (130-400) 10^3/cmm Neut % (Auto) 75.6 86.9 % Neut # (Auto) 7.82 H 9.28 H (1.8-7.7) 10^3/uL BMP 11/18/22 11/19/22 09:29 06:01 Sodium 137 136 Potassium 4.1 4.2 Chloride 100 104 Carbon Dioxide 25 23 BUN 22 H 10 Creatinine 0.8 0.7 Glucose 114 99 Calcium 9.3 8.5 Urine 11/18/22 Range/Units 09:29 Urine Color Yellow (Yellow) Urine Appearance Sl hazy A (CLEAR) Urine pH 6 (5-7) Ur Specific [place] 1.020 (1.005-1.030) Urine Protein Trace (Negative) Urine Glucose (UA) Norm (Normal) Urine Ketones Negative (Negative) Urine Nitrate Negative (Negative) Urine Bilirubin Neg (Negative) Ur Leukocyte Esterase Trace H (Negative) Urine RBC 0-4 H (0-2) /hpf Urine WBC 40-55 H (0-5) /hpf Microbiology 11/18/22 09:29 Urine Culture - Final Urine,Clean Catch Cardiac Studies: No Data to Display
--- NOTE | 2022-11-19 14:01 | P.OP_ITS ---
Operative Report Date of procedure: November 19, 2022 Pre-op diagnosis: Severely obstructing small right distal ureteral stone with UTI Post-op diagnosis: 1. Spontaneously passed right distal ureteral stone or debris 2. Severe diffuse CHRONIC CYSTITIS CYSTICA. Procedure done: 1. Cystoscopy, RIGHT: Retrograde ureteropyelogram 2. RIGHT ureteroscopy 3. Right ureteral stent placement (7 [place]uran by 26 cm double-pigtail without string) Implants: Right ureteral stent as above Specimens removed/disposition: None Pathology: None Surgeon: Nasreen Estimated blood loss: minimal Urine output: Not measured Complications: None Findings: Anesthesia: General Condition: Stable Disposition: PACU Intraoperative findings: * Retrograde showed some narrowing of the distal ureter but no clear filling defect. * Ureteroscopy confirmed that there was no residual stone in the distal ureter but there was a lot of inflammatory changes apparently where the the obstruction had been located. * Right ureter proximal to the previously identified stone was dilated but otherwise normal. * Stent left indwelling. Brief History: Kristina is a delightful 52-year-old white female who I evaluated for the first time yesterday for severe refractory right renal colicky symptoms apparently related to a very small right distal ureteral stone with high-grade right ureteral hydronephrosis. Her acute symptoms began that day but she did mention an episode of pain may be 6 months prior. No real concerns since that time. The degree of dilation seem to be somewhat out of line with the timeframe of her acute symptoms. Also surprising was the fact that the stone had not made any significant progression which might represent an intrinsic strictureor stone located in that same position for quite some time with resulting edema. She also had evidence of UTI but no evidence of sepsis at time of admission. She was placed on IV antibiotics and while no clear evidence of progression of infectious concerns she did have low-grade temperature the night of her admission, persistent tachycardia and some tachypnea. Just was not feeling well either. Vital signs otherwise were completely stable. We discussed her options and ultimately based on the severity of her pain and lack of progression and the concern related to the degree of dilation as well as the infection concerns she elected to proceed with endoscopic intervention. We did review the possibility of an additional ureteral pathology such as stricture that may be more difficult to bridge in a retrograde fashion and left open the possibility of merely stenting or potentially even requiring interventional radiology elsewhere for percutaneous retrograde access could not be obtained. Procedure: Urgent evaluation examination and obtaining of informed consent she was taken to the operating suite on 11/19/2022 where general anesthesia was administered without difficulty after appropriate timeout was performed, SCDs confirmed to be functioning, preoperative antibiotics administered, beta-marguerite protocol confirmed. Prepped and draped in the usual sterile fashion in dorsolithotomy position pain careful attention to avoiding pressure points. 21 Honduran cystoscope with 30 degree lens was introduced into the urethral yael tus and advanced into the bladder without difficulty. The bladder was systematically examined. There is no evidence of malignancy but she had severe diffuse CHRONIC CYSTITIS CYSTICA. No stones An 8 Honduran cone-tip catheter was intubated into the right ureteral orifice for a right retrograde ureteropyelogram which demonstrated: Some intrinsic n arrowing of the right distal ureter but no obvious filling defect seen consistent with a stone on CT scan. Only a small amount of contrast was was injected in the contrast up to about the level of the pelvic vessels appear to be less dilated than it had on the CT scan. Flexible tip guidewire was then advanced up the right ureter easily bypassing the narrowed area and curling in the area of the upper pole calyx. The wire was secured to the drapes as a safety wire and a second wire was passed in a similar fashion. The 7 Honduran offset semirigid ureteroscope was then attempted to be passed over the second guidewire the working wire but was unsuccessful due to the narrowing of the ureteral orifice. Cystoscope was then backloaded over the guidewire and a 15 [place]uran by 4 cm balloon was then passed over the guidewire through the cystoscope into appropriate position distal ureter and the balloon was inflated. Required 6 leann of pressure to dilate the narrowed area. Later than past about 2 cm more proximally and then reinflated in the same fashion. After the removal of the balloon and a 7 Honduran offset semirigid ureteroscope was advanced over the working wire into the distal ureter and the wire was removed. Scope was advanced to the proximal ureter. There was significant mount of inflammatory changes noted in the distal ureter at the level of the suspected stone on CT scan and slightly proximal to that. No significant pathology other than hydroureter. The scope was removed. An open-ended ureteral catheter was then advanced over the safety wire to the renal pelvis and a very small amount of contrast was injected to visualize the collecting system. Small amount of urine was drained prior to contrast injection and then again after. There appeared to be a significant decrease in the dilation noted on the CT scan. The wire was replaced through the offset open-ended ureteral catheter. And then the cystoscope was backloaded over the guidewire and a 7 [place]uran by 26 cm double-pigtail stent was advanced over the guidewire through the cystoscope into appropriate position as confirmed via fluoroscopy and cystoscopy. Stent was confirmed to be draining. Bladder was drained and the procedure was completed. She tolerated the procedure well without complications and was awakened in the operating room and returned to the recovery room in stable condition. PLANS: 1. Continue IV antibiotics and observe overnight 2. Potentially discharge tomorrow pending her infectious picture. 3. Make plans for stent removal sometime in the next 7 to 10 days.
--- NOTE | 2022-11-19 16:58 | PM.PN ---
Subjective Subjective: Patient went to the OR today for placement of a right ureteral stent . Tolerated patient tolerated procedure well. Intraoperatively findings of cystitis cystica. Medications: Reviewed: Yes Vitals/I&O/Wt Last Vital Signs Temp 98.7 F 11/19/22 14:47 Pulse 84 11/19/22 14:47 Resp 18 11/19/22 14:47 BP 127/73 11/19/22 14:47 Pulse Ox 95 11/19/22 14:47 O2 Del Method Room Air 11/19/22 14:47 11/19/22 11/19/22 11/19/22 06:59 14:59 22:59 Intake Total 1000 / 3091.667 1050 / 1050 0 / 1050 Output Total 300 / 500 0 / 0 Balance 700 / 2591.667 1050 / 1050 0 / 1050 Weight last 48 hrs Weight 54.431 kg Physical Exam Narrative: General: No acute distress, AO x3 HEENT: PERRLA, pupils bilaterally equal and reactive, pallors not present Chest: Normal vesicular breath sounds, no added sounds, equal good air entry bilaterally CVS: S1-S2 regular, no murmurs, no tachycardia, no gallops, no rubs Abdomen: Soft, nontender, no organomegaly, bowel sounds present Neuro: No focal deficits, no facial deformity, AO x3, power 5/5 in all limbs Data 11/19/22 06:01 11/19/22 06:01 Micro: Microbiology 11/19/22 16:19 Blood Culture - Preliminary Blood SPECIMEN COLLECTED 11/19/22 16:19 Blood Culture - Preliminary Blood SPECIMEN COLLECTED 11/18/22 09:29 Urine Culture - Final Urine,Clean Catch A&P Assessment and plan (1) Kidney stones: IV fluids Continue Rocephin Urology consultation appreciated , s/p ureteral stent placement today Follow-up pending urine culture currently noted to have blood in culture, not further being assessed by lab as thought to be contaminated. Stat urine cultures ordered now again. Additionally obtain blood cultures. (2) Pyelonephritis: Pending urine and blood cx repeat urine cx to be taken today of note, tsi will be on abx (3) Hydroureteronephrosis: s/p stenting (4) Migraine: Attestations Medical Necessity Statement*: s/p OR today, pending urine and blood cx Coding Level of Care Code Acute Code for Chg Fwd Diagnoses Kidney stones N20.0 Pyelonephritis N12 Hydroureteronephrosis N13.30 Migraine G43.909
[2022-11-19 17:42] LABS: Glucose Urine UA Norm (Normal); Ketones Urine 1+ (Negative); Protein Urine Trace (Negative); Urine Color Yellow (Yellow); pH Urine 6 (5-7)
[2022-11-19 17:43] LABS: Add Urine Microscopic? YES; Bilirubin Urine Neg (Negative); Blood Urine 3+ (Negative); Leukocyte Esterase Urine Negative (Negative); Nitrate Urine Negative (Negative); Urobilinogen Urine Norm (Negative)
--- NOTE | 2022-11-19 17:45 | ANE.PACU2 ---
Inpatient post-anesthesia follow up: Airway intact: Yes Vital signs: Temperature 98.4 F Pulse Rate 87 Respiratory Rate 16 Blood Pressure 124/79 Pulse Oximetry 90 Oxygen Delivery Me thod Room Air Oxygen Flow Rate Fraction of Inspir ed Oxygen Hydration adequate: Yes Nausea and vomiting: No Pain level: 3 Mental status: Baseline
[2022-11-19 17:49] LABS: Bacteria Urine TRACE /hpf; Mucus Urine N /hpf; RBC Urine 50-80 /hpf (0-2)
[2022-11-19 17:50] LABS: Add Urine Culture? Yes
[2022-11-19] MEDS: sennosides 8.6 mg Tablet 17.2 MG PO (20:24)
[2022-11-20 03:18] VITALS: BP 117/70; PULSE 79; RESP 12; TEMP 37.2; O2SAT 93
[2022-11-20] MEDS: sodium chlor 0.9% + KCl 20 mEq 20 MEQ/1,000 ML BAG 150 MEQ IV ×3 (03:44→22:51)
--- NOTE | 2022-11-20 04:00 | XR_ITS ---
WS: [id number] XR KUB [id number] REASON FOR EXAM: kidney stone with hydronephrosis FINDINGS: Right ureteral stent. Proximal portion of the ureteral stent is partially uncoiled. No urinary tract calculi. No other significant abdominal or pelvic abnormality. XR/XR KUB [id number] IMPRESSION: Right ureteral stent as above.
[2022-11-20 07:40] VITALS: BP 127/74; PULSE 92; RESP 18; TEMP 36.9; O2SAT 94
[2022-11-20] MEDS: docusate sodium 100 mg Capsule PO ×2 (08:43→17:15)
[2022-11-20] MEDS: acetaminophen 325 mg Tablet 650 MG PO ×2 (08:43→16:24)
[2022-11-20] MEDS: pantoprazole DR 40 mg Tablet PO (08:43)
[2022-11-20] MEDS: cefTRIAXone 1,000 MG in sodium chloride 0.9% (plus) 50 ML 100 MG IV (09:37)
[2022-11-20 11:11] VITALS: BP 134/81; PULSE 78; RESP 18; TEMP 36.9; O2SAT 96
[2022-11-20 15:02] VITALS: BP 134/80; PULSE 92; RESP 18; TEMP 37.1; O2SAT 94
--- NOTE | 2022-11-20 15:56 | P.PN_ITS ---
Subjective Subjective: patient's abdominal pain is improved today. She had Tmax of 99 Fahrenheit through the night. Urine culture remains pending. Medications: Reviewed: Yes Vitals/I&O/Wt Last Vital Signs Temp 98.7 F 11/20/22 15:02 Pulse 92 11/20/22 15:02 Resp 18 11/20/22 15:02 BP 134/80 11/20/22 15:02 Pulse Ox 94 11/20/22 15:02 O2 Del Method Room Air 11/20/22 15:02 11/20/22 11/20/22 11/20/22 06:59 14:59 22:59 Intake Total 950 / 2987.5 650 / 650 Balance 950 / 2887.5 650 / 650 Physical Exam Narrative: General: No acute distress, AO x3 HEENT: PERRLA, pupils bilaterally equal and reactive, pallors not present Chest: Normal vesicular breath sounds, no added sounds, equal good air entry bilaterally CVS: S1-S2 regular, no murmurs, no tachycardia, no gallops, no rubs Abdomen: Soft, nontender, no organomegaly, bowel sounds present Neuro: No focal deficits, no facial deformity, AO x3, power 5/5 in all limbs Data 11/19/22 06:01 11/19/22 06:01 Micro: Microbiology 11/19/22 16:19 Blood Culture - Preliminary Blood SPECIMEN COLLECTED 11/19/22 16:19 Blood Culture - Preliminary Blood SPECIMEN COLLECTED A&P Assessment and plan (1) Kidney stones: IV fluids Continue Rocephin Urology consultation appreciated , s/p ureteral stent placement on 11/19/2022 Follow-up pending urine culture, initial urine culture taken on not being worked up any further as thought to be contaminated. Repeat culture sent on November 19, additional blood cultures also obtained. Awaiting culture results for final antibiotic selection at discharge. (2) Pyelonephritis: Pending urine and blood cx (3) Hydroureteronephrosis: s/p stenting (4) Migraine: Attestations Medical Necessity Statement*: Pending urine and blood cultures, patient currently improving, anticipate discharge in the upcoming 24 hours if continues to do clinically well. Coding Level of Care Code Acute Code for [facility] Diagnoses Kidney stones N20.0 Pyelonephritis N12 Hydroureteronephrosis N13.30 Migraine G43.909
[2022-11-20] MEDS: diphenhydrAMINE 25 mg Capsule PO (17:56)
--- NOTE | 2022-11-20 19:05 | PM.MISC ---
Miscellaneous Note Purpose of Documentation: Delayed entry HPI Comments Details: Postop day #1 cystoscopy, ureteroscopy, stent placement and retrograde. Intraoperative findings showed no residual stone but did have some ureteral narrowing and inflammatory changes. No evidence of stricture though. Differential diagnosis for the finding on the CT scan could have been a stone that is passed or infectious debris that is passed. Today she is feeling better as far as pain goes but she still feeling ill with weakness, chills and abdominal pain. Typical stent symptoms as well. No overt renal colic Vital signs of been normal. I expect these symptoms are more related to incompletely treated pyelonephritis. I looked at her KUB and it shows the stent in place. It looks like the proximal curl has backed off somewhat. I expect it is probably related to the significantly dilated proximal ureter and UPJ and renal pelvis. Progress Note: A&P Assessment and plan (1) Pyelonephritis: Status: Acute Assessment and Plan: Still symptomatic. Overall improving (2) Hydroureteronephrosis: Status: Acute Assessment and Plan: Exact etiology unclear but could have been infectious debris or stone that had passed. (3) Cystitis cystica: Status: Acute Assessment and Plan: With severe diffuse cystitis cystica and on careful examination of history she probably has had ongoing symptoms for quite some time which would fit that picture. The symptoms included nagging pelvic discomfort, urgency frequency frequent nocturia. We will require more prolonged course of antibiotics Plan Continue antibiotics Plan for stent removal sometime next week Time Spent With Patient Time: Total time spent is greater than 50% in coordination of care (as documented) at patient's floor/unit and/or counseling patient: Physical Exam Narrative Alert and oriented, no acute distress Normal extremity movements. No neurologic deficits. Abdomen is still somewhat tender on the right side. No rebound. No rashes or lesions Neck: Normal range of motion Bladder nondistended
[2022-11-20 19:40] VITALS: BP 101/66; PULSE 98; RESP 21; TEMP 37.2; O2SAT 96
[2022-11-20] MEDS: sennosides 8.6 mg Tablet 17.2 MG PO (20:25)
[2022-11-21 00:41] VITALS: BP 115/74; PULSE 87; RESP 19; TEMP 37.1; O2SAT 96
[2022-11-21 03:54] VITALS: BP 114/75; PULSE 80; RESP 18; TEMP 37.1; O2SAT 93
[2022-11-21 05:03] LABS: Basophils % 0.5 %; Eosinophils # 0.1 10^3/uL (0.0-0.8); Eosinophils % 1.3 %; Hematocrit 36.8 % (37.0-47.0); Hemoglobin 11.9 g/dL (11.5-15.3); Lymphocytes # 1.4 10^3/uL (0.8-4.8); Lymphocytes % 22.5 %; Mean Corpuscular HGB Conc 32.3 g/dL (30.0-36.0); Mean Corpuscular Hemoglobin 30.2 pg (28.0-34.0); Mean Corpuscular Volume 93.4 fl (81-99); Mean Platelet Volume 10.2 fL (7.4-10.4); Monocytes # 0.6 10^3/uL (0.2-0.9); Monocytes % 9.7 %; Neutrophils # 4.11 10^3/uL (1.8-7.7); Neutrophils % 65.7 %; Nucleated Red Blood Cells % 0 %; Platelet Count 133 10^3/cmm (130-400); Red Blood Count 3.94 10^6/uL (4.1-5.3); Red Cell Distribution Width 12.5 % (12.1-15.1); White Blood Count 6.3 10^3/uL (4.0-10.0)
[2022-11-21 05:19] LABS: Alanine Aminotransferase 21 U/L (0-33); Albumin Level 3.5 g/dL (3.5-5.2); Alkaline Phosphatase 81 U/L (35-105); Anion Gap 14.5 (5-19); Aspartate Amino Transferase 26 U/L (0-32); Blood Urea Nitrogen 7 mg/dL (6-20); Calcium 8.4 mg/dL (8.5-10.5); Carbon Dioxide 22 mmol/L (22-29); Chloride 107 mmol/L (98-107); Creatinine Clr Calc Pharmacy 85.9335; Globulin 2.5 g/dL (1.3-4.6); Glomerular Filtration Rate 105.4 mL/min (90-130); Glucose 96 mg/dL (65-115); Osmolality Calculated 286 mOsm/kg (285-295); Potassium 4.5 mmol/L (3.5-5.1); Sodium 139 mmol/L (136-145); Total Bilirubin 0.2 mg/dL (0.15-1.2)
[2022-11-21] MEDS: sodium chlor 0.9% + KCl 20 mEq 20 MEQ/1,000 ML BAG 150 MEQ IV (05:37)
[2022-11-21 08:00] VITALS: BP 137/87; PULSE 84; RESP 16; TEMP 36.8; O2SAT 96
[2022-11-21] MEDS: docusate sodium 100 mg Capsule PO (08:06)
[2022-11-21] MEDS: pantoprazole DR 40 mg Tablet PO (08:06)
--- NOTE | 2022-11-21 10:35 | P.DS_ITS ---
Discharge Providers Date of Admission: 11/18/22 11:46 Date of Discharge: November 21, 2022 Attending Provider at Admission: Susan Koch MD Attending Provider at Discharge: Lin Montes MD Diagnoses at Discharge Discharge Diagnosis (1) Kidney stones: Status: Chronic Permanent problem details: type unknown (2) Pyelonephritis: Status: Acute (3) Hydroureteronephrosis: Status: Resolved (4) Migraine: Status: Chronic Reason for Visit Reason for Visit: urogenital Hospital Course Hospital Course 52 year old female with a history of urolithiasis who presented with one day of right flank pain which radiated to the right lower quadrant.? Complained of severe nausea and vomiting as well. She was right hydroureteronephrosis down to the distal ureter with evidence of a very small stone in that most distal aspect on CT imaging. Urine showed pyuria.?She underwent cystoscopy, ?RIGHT ureteroscopy and Right ureteral stent placement?on 11/19/22. OR findings notable for chronic cystitis cystica. UA positive but she had mixed gram dtain which could not be further evaluated. Repeat urine cx is negative to date. She received treatment with ceftriaxone empirically and is being transitioned to po cipro at the time of discharge. Hospital course was notable for a fixed drug eruption manifesting as shallow ulcerative rash over the tongue, no other reactions at other site. Unclear which drug may have been the culprit since she received abx, anesthetics, anti emetics , pantoprazole and opiates during course of admission. As a precaution b lactams have not been continued at discharge and abx changed to fluoroquinolones. Patient recommended to be evalauted by pit manager should she get a reaction again. Currently rash is improving with benadryl alone. pain is completely resolved at discharge Physical Exam Narrative: General: No acute distress, AO x3 HEENT: PERRLA, pupils bilaterally equal and reactive, pallors not present Chest: Normal vesicular breath sounds, no added sounds, equal good air entry bilaterally CVS: S1-S2 regular, no murmurs, no tachycardia, no gallops, no rubs Abdomen: Soft, nontender, no organomegaly, bowel sounds present Neuro: No focal deficits, no facial deformity, AO x3, power 5/5 in all limbs Discharge Data Studies Completed and Pending Completed Studies During Hospitalization Category Date Time Status CT kidney stone 44560 Stat Cat Scan 11/18/22 09:32 Completed XR KUB [id number] AM LABS Exams 11/20/22 04:00 Completed XR KUB portable [id number] Stat Exams 11/19/22 07:59 Completed Pending at discharge Category Date Time Status Blood Culture Stat Lab 11/19/22 16:19 Results Urine Culture Stat Lab 11/19/22 17:15 Received Radiology Impressions Abdomen/Pelvis CT 11/18/22 09:32 IMPRESSION: 1. Moderate RIGHT hydroureteronephrosis. There is a 2 mm calcification in the very distal ureter. The extent of the hydronephrosis is out of proportion to the size of the ureter calcification. There is an additional nonobstructing stone in the RIGHT kidney. 2. Mild perinephric stranding RIGHT kidney. There is mild variable density within the renal parenchyma. Focal area of nephritis not excluded. 3. Moderate atherosclerosis aorta. 4. Normal appendix. C-Arm Fluoroscopy 11/19/22 12:53 IMPRESSION: Right retrograde ureteropyelogram with right ureteral stent placement. KUB X-Ray 11/20/22 04:00 IMPRESSION: Right ureteral stent as above. Laboratory Results WBC 6.3 10^3/uL (4.0-10.0) 11/21/22 04:48 RBC 3.94 10^6/uL (4.1-5.3) L 11/21/22 04:48 Hgb 11.9 g/dL (11.5-15.3) 11/21/22 04:48 Hct 36.8 % (37.0-47.0) L 11/21/22 04:48 MCV 93.4 fl (81-99) 11/21/22 04:48 MCH 30.2 pg (28.0-34.0) 11/21/22 04:48 MCHC 32.3 g/dL (30.0-36.0) 11/21/22 04:48 RDW 12.5 % (12.1-15.1) 11/21/22 04:48 Plt Count 133 10^3/cmm (130-400) 11/21/22 04:48 MPV 10.2 fL (7.4-10.4) 11/21/22 04:48 Neut % (Auto) 65.7 % 11/21/22 04:48 Lymph % (Auto) 22.5 % 11/21/22 04:48 [place] % (Auto) 9.7 % 11/21/22 04:48 Eos % (Auto) 1.3 % 11/21/22 04:48 Baso % (Auto) 0.5 % 11/21/22 04:48 Neut # (Auto) 4.11 10^3/uL (1.8-7.7) 11/21/22 04:48 Lymph # (Auto) 1.4 10^3/uL (0.8-4.8) 11/21/22 04:48 [place] # (Auto) 0.6 10^3/uL (0.2-0.9) 11/21/22 04:48 Eos # (Auto) 0.1 10^3/uL (0.0-0.8) 11/21/22 04:48 Baso # (Auto) 0.0 10^3/uL (0.0-0.1) 11/21/22 04:48 Nucleated RBC % (auto) 0 % 11/21/22 04:48 Nucleated RBCs # 0.0 /100WBC 11/21/22 04:48 Sodium 139 mmol/L (136-145) 11/21/22 04:48 Potassium 4.5 mmol/L (3.5-5.1) 11/21/22 04:48 Chloride 107 mmol/L (98-107) 11/21/22 04:48 Carbon Dioxide 22 mmol/L (22-29) 11/21/22 04:48 Anion Gap 14.5 (5-19) 11/21/22 04:48 BUN 7 mg/dL (6-20) 11/21/22 04:48 Creatinine 0.6 mg/dL (0.5-0.9) 11/21/22 04:48 GFR Calculation 105.4 mL/min (90-130) 11/21/22 04:48 Glucose 96 mg/dL (65-115) 11/21/22 04:48 Calculated Osmolality 286 mOsm/kg (285-295) 11/21/22 04:48 Lactic Acid 1.6 mmol/L (0.5-2.2) 11/18/22 09:29 Calcium 8.4 mg/dL (8.5-10.5) L 11/21/22 04:48 Phosphorus 2.5 mg/dL (2.5-4.5) 11/19/22 06:01 Magnesium 1.8 mg/dL (1.7-2.3) 11/19/22 06:01 Total Bilirubin 0.2 mg/dL (0.15-1.2) 11/21/22 04:48 AST 26 U/L (0-32) 11/21/22 04:48 ALT 21 U/L (0-33) 11/21/22 04:48 Alkaline Phosphatase 81 U/L (35-105) 11/21/22 04:48 Total Protein 6.0 g/dL (6.6-8.7) L 11/21/22 04:48 Albumin 3.5 g/dL (3.5-5.2) 11/21/22 04:48 Globulin 2.5 g/dL (1.3-4.6) 11/21/22 04:48 Urine Color Yellow (Yellow) 11/19/22 17:15 Urine Appearance Sl cloudy (CLEAR) A 11/19/22 17:15 Urine pH 6 (5-7) 11/19/22 17:15 Ur Specific [place] 1.020 (1.005-1.030) 11/19/22 17:15 Urine Protein Trace (Negative) 11/19/22 17:15 Urine Glucose (UA) Norm (Normal) 11/19/22 17:15 Urine Ketones 1+ (Negative) H 11/19/22 17:15 Urine Blood 3+ (Negative) H 11/19/22 17:15 Urine Nitrate Negative (Negative) 11/19/22 17:15 Urine Bilirubin Neg (Negative) 11/19/22 17:15 Urine Urobilinogen Norm mg/dL (Negative) 11/19/22 17:15 Ur Leukocyte Esterase Negative (Negative) 11/19/22 17:15 Urine RBC 50-80 /hpf (0-2) H 11/19/22 17:15 Urine WBC 10-15 /hpf (0-5) H 11/19/22 17:15 Ur Squamous Epith Cells None /hpf (0-5) 11/19/22 17:15 Amorphous Sediment Not Reportable 11/19/22 17:15 Urine Bacteria Trace /hpf (NONE) 11/19/22 17:15 Urine Mucus N /hpf 11/19/22 17:15 Vitals Last Vital Signs Temp 98.3 F 11/21/22 08:00 Pulse 84 11/21/22 08:00 Resp 16 11/21/22 08:00 BP 137/87 11/21/22 08:00 Pulse Ox 96 11/21/22 08:00 O2 Del Method Room Air 11/21/22 08:00 Discharge Plan Discharge Patient Disposition: Home Condition: Stable Prescriptions: New Cipro 500 mg tablet 500 mg PO BID 10 Days Qty: 20 0RF Rx Instructions: continue antibiotic until urology follow up and stent removal Continued sumatriptan succinate 100 mg tablet 100 mg PO DIRECTED PRN (Reason: Migraine Headache) Rx Instructions: Take one tablet by mouth for migraine. May repeat dose in 2 hours if needed. Max 4 tabs in 24 hours. ondansetron 4 mg tablet,disintegrating 4 mg PO Q8H PRN (Reason: Nausea And Vomiting) [id number] 50-300-40 mg capsule 1 cap PO Q6H PRN (Reason: Migraine Headache) Discharge Orders: Discharge Order (Routine); Ordered 11/21/22 Ordered By: Lin Montes Referrals: Kwame Downey MD [Physician] - 11/28/22 (Cystoscopy and stent removal Message sent to Clinic.) Leah Richardson APRN [Referring] - 12/03/22 2:30 pm Discharge Diet: Usual diet Discharge Activity: Resume usual activity Patient Instructions: Ciprofloxacin (By mouth) (Cipro), Ureteral Stent Placement (GEN), Opioid Safety Activity Restrictions/Additional Instructions: Urology follow-up in about a week for cystoscopy and stent removal You can expect to have urgency, frequency, right-sided discomfort, right-sided flank pain with voiding. These are all normal. So is blood in the urine. These will cease once the stent has been removed. As a reminder you have a very chronic bladder infection called chronic cystitis cystica that we will need more prolonged course of antibiotics for clearance. Discharge Attestations Time Spent in Discharge Care*: greater than 30 min Quality Metrics Clinical Quality Measures [ No reported AMI, CVA or VTE this stay] Coding Level of Care Code Acute Code for Chg Fwd Diagnoses Kidney stones N20.0 Pyelonephritis N12 Hydroureteronephrosis N13.30 Migraine G43.909
[2022-11-21 14:42] VITALS: BP 137/87; PULSE 84; RESP 16; TEMP 36.8; O2SAT 96
--- NOTE | 2022-11-21 15:08 | P.MISC_ITS ---
Miscellaneous Note Purpose of Documentation: Daily progress HPI Comments Details: Postop day #2: Cystoscopy, right ureteral stent placement for obstructive Carlos Doing much better today. Denies any significant pain but still has some stent symptoms. No nausea vomiting fever or chills. Feels that she could manage well at home. Good review of the stent and the need to remove it. We will plan for that next week. Also reviewed the impact of CHRONIC CYSTITIS CYSTICA on antibiotic course. I expect that she will feel significantly better after period of treatment. Home today on antibiotics with plans for stent removal next week Physical Exam Narrative Looks much more alert and comfortable. Unlabored respiration Regular rate and rhythm without tachycardia Abdomen is soft. Much less uncomfortable with exam No neurologic deficits Pretty much baseline Progress Note: A&P Assessment and plan (1) Pyelonephritis: Status: Acute Assessment and Plan: Much better today. (2) Hydroureteronephrosis: Status: Resolved Assessment and Plan: Stented now (3) Cystitis cystica: Status: Acute Assessment and Plan: Coincidental finding at time of cystoscopy for stent placement. Likely the sour ce of her acute pyelonephritis infection. (4) Retained ureteral stent: Status: Acute Assessment and Plan: Stent placed at time of obstructive pyelonephritis. We will plan on removing the stent sometime next week Plan See HPI Time Spent With Patient Time: Total time spent is greater than 50% in coordination of care (as documented) at patient's floor/unit and/or counseling patient:
== END 2022-11-21 13:40 | disposition home or self-care (01) | DRG 661 ==
LOC: ER 11:52 → MEDSURG 12:08
PROVIDERS: Urology; Admitting Provider Hospitalist; Emergency Provider Family Medicine; Visit Provider Student in an Organized Health Care Education/Training Program
PROC: 0TJB8ZZ Inspection of Bladder, Via Natural or Artificial Opening Endoscopic (ICD-10-PCS; CPT 52000; principal; 2022-11-19 13:10)
PROC: 0T768DZ Dilation of Right Ureter with Intraluminal Device, Via Natural or Artificial Opening Endoscopic (ICD-10-PCS; CPT 74420; 2022-11-19 13:10)
PROC: 0TJ98ZZ Inspection of Ureter, Via Natural or Artificial Opening Endoscopic (ICD-10-PCS; CPT 52351; 2022-11-19 13:10)
PROC: 0T768DZ Dilation of Right Ureter with Intraluminal Device, Via Natural or Artificial Opening Endoscopic (ICD-10-PCS; CPT 50605; 2022-11-19 13:10)
DX: N13.6 Pyonephrosis (principal); Z87.442 Personal history of urinary calculi; Z98.1 Arthrodesis status; G43.909 Migraine, unspecified, not intractable, without status migrainosus; N30.20 Other chronic cystitis without hematuria
CPT/HCPCS: 36415; 74018; 74176; 76000; 80048; 80053; 81001; 83605; 83735; 84100; 85025; 87040; 87086; 96365; 96375; 99285; J0696; J1100; J1170; J2270; J2370; J2405; J2704; J2710; J3010; J3480; J3490; J7030

== ENCOUNTER → 2022-11-28 11:30 | Outpatient (BNVA) | payer BC, SELFPAY | PROVIDERS: Visit Provider Urology | DX: N30.80 Other cystitis without hematuria (principal); Z96.0 Presence of urogenital implants; N30.20 Other chronic cystitis without hematuria | CPT/HCPCS: 81003 ==

== ENCOUNTER → 2023-03-06 13:55 | Outpatient (BNVA) | payer BC, SELFPAY | PROVIDERS: PCP Family Medicine; Visit Provider Family Medicine | DX: M21.611 Bunion of right foot (principal); M21.612 Bunion of left foot; Z00.00 Encounter for general adult medical examination without abnormal findings | CPT/HCPCS: 80053; 80061; 85025 ==

== ENCOUNTER → 2023-03-19 15:09 | Outpatient (BNVA) | payer BC, SELFPAY | PROVIDERS: PCP Family Medicine; Visit Provider Podiatrist Foot & Ankle Surgery | DX: M21.611 Bunion of right foot (principal); M21.612 Bunion of left foot; M77.41 Metatarsalgia, right foot; M77.42 Metatarsalgia, left foot | CPT/HCPCS: 73630 ==

== ENCOUNTER → 2024-07-02 10:32 | Outpatient (BNVA) | payer BC, SELFPAY | PROVIDERS: PCP Family Medicine Adult Medicine; Visit Provider Emergency Medicine | DX: R52 Pain, unspecified (principal) | CPT/HCPCS: 87400; 87426 ==

== ENCOUNTER → 2024-08-27 15:22 | Outpatient (BNVA) | payer BC, SELFPAY | PROVIDERS: PCP Family Medicine; Visit Provider Family Medicine | DX: Z00.00 Encounter for general adult medical examination without abnormal findings (principal) | CPT/HCPCS: 80053; 80061; 84443; 85025 ==

== ENCOUNTER 2025-03-02 15:10 | Outpatient (CLI) | payer BC, SELFPAY ==
--- NOTE | 2025-03-02 15:20 | MM_ITS ---
WS: [id number] BILATERAL 3D TOMOSYNTHESIS DIGITAL SCREENING MAMMOGRAPHY WITH CAD CLINICAL INFORMATION: screening HISTORY: Screening mammogram. No current complaints. COMPARISON: 2022 TECHNIQUE: Bilateral CC and MLO views. FINDINGS: Scattered fibroglandular densities bilaterally. No suspicious focal mass, asymmetry, calcifications, or architectural distortion. No evidence of malignancy. Vascular calcification MM/MM scr BI tomosynthesis [id number] IMPRESSION: DENSITY: There are scattered areas of fibroglandular density. BI-RADS: 2 - Benign. FOLLOW UP: 1 Year Follow-up Recommend return to annual screening mammography.
== END 2025-03-02 15:11 | disposition home or self-care (01) ==
LOC: RAD 15:10
PROVIDERS: PCP Family Medicine; Visit Provider Family Medicine
DX: Z12.31 Encounter for screening mammogram for malignant neoplasm of breast (principal); R92.323 Mammographic fibroglandular density, bilateral breasts; R92.1 Mammographic calcification found on diagnostic imaging of breast
CPT/HCPCS: 77063; 77067